=== PATIENT | male | born 1995 | race African-American/Black ===

== ENCOUNTER → 2018-06-04 | Emergency (ER) | payer OTHER ==
[~2018-06-04] VITALS: Ht 182.9 cm; Wt 68.5 kg
[2018-06-04 22:40] VITALS: BP 141/100
== END ==
LOC: M.ERS 22:33
DX: K64.4 Residual hemorrhoidal skin tags (principal)

== ENCOUNTER 2018-10-24 00:26 | Emergency (ER) | payer OTHER ==
[~2018-10-24] VITALS: Ht 188 cm; Wt 68.5 kg
[2018-10-24] MEDS ORDERED: AMOXICILLIN 50500 MG PO (00:38)
[2018-10-24 00:45] VITALS: BP 129/72
== END 2018-10-24 00:45 | disposition home or self-care (01) ==
LOC: M.ERS 00:26
DX: J06.9 Acute upper respiratory infection, unspecified (principal)

== ENCOUNTER 2018-11-16 18:06 | Emergency (ER) | payer OTHER ==
[~2018-11-16] VITALS: Ht 188 cm; Wt 70.3 kg
[~2018-11-16 18:06] MED LIST: AMOXICILLIN 50500 MG PO
[2018-11-16] MEDS ORDERED: IBUPROFEN 200200 M1 PO (18:20)
[2018-11-16] MEDS ORDERED: PREDNISONE 20 M20 MG PO (18:34)
[2018-11-16] MEDS ORDERED: ZPAK PO (18:34)
[2018-11-16 18:51] VITALS: BP 121/72
== END 2018-11-16 18:50 | disposition home or self-care (01) ==
LOC: M.ERS 18:06
DX: J18.9 Pneumonia, unspecified organism (principal)

== ENCOUNTER 2018-12-23 11:49 | Emergency (ER) | payer OTHER ==
[~2018-12-23] VITALS: Ht 188 cm; Wt 68.5 kg
[~2018-12-23 11:49] MED LIST changes: +IBUPROFEN 200200 M1 PO; +PREDNISONE 20 M20 MG PO; +ZPAK PO
[2018-12-23] MEDS ORDERED: MEDROLDOSEPACK PO (12:36)
[2018-12-23] MEDS ORDERED: ZPAK PO (12:36)
[2018-12-23 12:48] VITALS: BP 118/79
== END 2018-12-23 12:49 | disposition home or self-care (01) ==
LOC: M.ERS 11:49
DX: J20.9 Acute bronchitis, unspecified (principal); Z87.01 Personal history of pneumonia (recurrent)

== ENCOUNTER 2019-02-19 23:08 | Emergency (ER) | payer OTHER ==
[~2019-02-19] VITALS: Ht 188 cm; Wt 69.4 kg
[~2019-02-19 23:08] MED LIST changes: +MEDROLDOSEPACK PO
[2019-02-19 23:18] VITALS: BP 131/78
[2019-02-19] MEDS ORDERED: MOBIC15 MG PO (23:43)
[2019-02-19] MEDS ORDERED: TESSALON PERLE100 M1 PO (23:43)
== END 2019-02-19 23:49 | disposition home or self-care (01) ==
LOC: M.ERS 23:08
DX: M79.671 Pain in right foot (principal); R05 Cough; Z76.0 Encounter for issue of repeat prescription